=== PATIENT | female | born 2000 | race Caucasian/White ===

== ENCOUNTER 2020-02-10 11:59 | Emergency (ER) | payer OTHER ==
[~2020-02-10 11:59] MED LIST: ALBUTEROL0.5 ML/AMP NEB; AZITHROMYCIN250 MG PO; BACTRIM DS TAB1 EACH PO; CIPRO500 M1 PO; EMVERM100 MG PO; FERROUS SULFAT325 MG PO; FOLIC ACID1 MG PO; IBUPROFEN800 MG PO; KEFLEX250 MG PO; LAMICTAL25 MG PO; MEDROL 4MG DOSEP4 MG PO; MOTRIN600 MG PO; ONDANSETRON ODT4 MG PO; ONDANSETRON ODT4 MG SL; VOLTAREN **OUT75 MG PO; ZANTAC150 MG PO; ZOFRAN4 MG PO
[2020-02-10 13:02] LABS: BILIRUBIN NEGATIVE (NEGATIVE); BLOOD 1+ Ery/uL (NEGATIVE); CLARITY CLEAR (CLEAR); COLOR YELLOW (YELLOW); GLUCOSE (U) NORMAL (NORMAL); LEUKOCYTES NEGATIVE Leu/uL (NEGATIVE); NITRITE NEGATIVE (NEGATIVE); PROTEIN NEGATIVE (NEGATIVE); UROBILINOGEN 0.2 mg/dL (0.2-1.0)
[2020-02-10 13:16] LABS: URINARY WBC RARE
[2020-02-10 13:20] LABS: BASOPHIL 0.9 % (0-2); EOSINOPHIL 6.2 % (0-5); HCT 44.9 % (37.0-47.0); HGB 14.6 g/dl (12.5-16.0); LYMPHOCYTE 19.2 % (15-48); MCH 30.2 pg (25.0-31.0); MCHC 32.5 g/dL (32.0-36.0); MCV 92.8 fL (78.0-100.0); MONOCYTE 9.4 % (0-12); MPV 9.4 fL (6.0-9.5); NEUTROPHIL 63.9 % (41-80); NRBC 0; PLT 208 K/uL (150-400); RBC 4.84 M/uL (4.20-5.40); RDW 12.1 % (11.5-14.0); WBC 9.8 K/uL (4.0-10.5)
[2020-02-10 13:55] LABS: CREATININE 0.59 mg/dL (0.51-0.95); POTASSIUM 4.1 mmol/L (3.5-5.1)
[2020-02-10 13:56] LABS: ALBUMIN 3.7 g/dL (3.4-5.0); BILIRUBIN - TOTAL 0.3 mg/dL (0.2-1.0); GLOBULIN (CALCULATION) 3.3 g/dL
[2020-02-10] MEDS ORDERED: MEDROL 4MG DOSEP4 MG PO (16:43)
[2020-02-10] MEDS ORDERED: PEPCID AC20 MG PO (16:43)
== END 2020-02-10 17:15 | disposition home or self-care (01) ==
LOC: FER 11:59
PROVIDERS: Internal Medicine
DX: J45.909 Unspecified asthma, uncomplicated (principal); R11.2 Nausea with vomiting, unspecified; R19.7 Diarrhea, unspecified; F17.210 Nicotine dependence, cigarettes, uncomplicated; Z20.828 Contact with and (suspected) exposure to other viral communicable diseases
CPT/HCPCS: 36415; 71045; 80053; 81001; 85025; 94664; J2930; U0002

== ENCOUNTER 2020-05-05 11:42 | Emergency (ER) | payer OTHER ==
[~2020-05-05 11:42] MED LIST changes: +PEPCID AC20 MG PO
[2020-05-05 14:00] LABS: BASOPHIL 0.8 % (0-2); EOSINOPHIL 6.7 % (0-5); HCT 43.9 % (37.0-47.0); HGB 14.6 g/dl (12.5-16.0); LYMPHOCYTE 29.3 % (15-48); MCH 30.7 pg (25.0-31.0); MCHC 33.3 g/dL (32.0-36.0); MCV 92.2 fL (78.0-100.0); MONOCYTE 4.5 % (0-12); MPV 8.9 fL (6.0-9.5); NEUTROPHIL 58.1 % (41-80); NRBC 0; PLT 229 K/uL (150-400); RBC 4.76 M/uL (4.20-5.40); RDW 11.9 % (11.5-14.0); WBC 9.8 K/uL (4.0-10.5)
[2020-05-05 14:18] LABS: BUN/CREAT RATIO (CALC) 19.7 RATIO; CREATININE 0.61 mg/dL (0.51-0.95); POTASSIUM 3.8 mmol/L (3.5-5.1)
[2020-05-05] MEDS ORDERED: PREDNISONE 20MG20 MG PO (14:55)
[2020-05-05] MEDS ORDERED: BACTRIM DS TAB1 EACH PO (14:55)
== END 2020-05-05 15:24 | disposition home or self-care (01) ==
LOC: FER 11:42
PROVIDERS: Nurse Practitioner Family
DX: T59.811A Toxic effect of smoke, accidental (unintentional), initial encounter (principal); R06.02 Shortness of breath; L01.00 Impetigo, unspecified; Z20.822 Contact with and (suspected) exposure to COVID-19; Z98.890 Other specified postprocedural states; Y92.009 Unspecified place in unspecified non-institutional (private) residence as the place of occurrence of the external cause
CPT/HCPCS: 36415; 71046; 80048; 85025; 94640; 94664; J1100

== ENCOUNTER 2020-10-09 10:02 | Emergency (ER) | payer OTHER ==
[~2020-10-09 10:02] MED LIST changes: +PREDNISONE 20MG20 MG PO
[2020-10-09 11:13] LABS: BASOPHIL 0.9 % (0-2); EOSINOPHIL 8.3 % (0-5); HCT 44.6 % (37.0-47.0); HGB 14.7 g/dl (12.5-16.0); LYMPHOCYTE 26.5 % (15-48); MCH 30.3 pg (25.0-31.0); MONOCYTE 6.3 % (0-12); MPV 9.2 fL (6.0-9.5); NEUTROPHIL 56.8 % (41-80); NRBC 0; PLT 255 K/uL (150-400); RBC 4.85 M/uL (4.20-5.40); RDW 12.4 % (11.5-14.0); WBC 12.1 K/uL (4.0-10.5)
[2020-10-09 12:15] LABS: BILIRUBIN NEGATIVE (NEGATIVE); BLOOD TRACE-LYSED Ery/uL (NEGATIVE); CLARITY CLEAR (CLEAR); COLOR YELLOW (YELLOW); GLUCOSE (U) NORMAL (NORMAL); LEUKOCYTES NEGATIVE Leu/uL (NEGATIVE); NITRITE NEGATIVE (NEGATIVE); PROTEIN NEGATIVE (NEGATIVE); SPECIFIC GRAVITY 1.025 (1.001-1.030); UROBILINOGEN 0.2 mg/dL (0.2-1.0); pH 6.5 (5.0-9.0)
[2020-10-09 12:36] LABS: BACTERIA 1+; SQUAMOUS EPITHELIAL CELLS 20-50; URINARY WBC RARE
[2020-10-09 12:56] LABS: ALBUMIN 3.5 g/dL (3.4-5.0); BILIRUBIN - TOTAL 0.2 mg/dL (0.2-1.0); BUN/CREAT RATIO (CALC) 15.5 RATIO; CREATININE 0.71 mg/dL (0.51-0.95); GLOBULIN (CALCULATION) 3.5 g/dL; POTASSIUM 4.3 mmol/L (3.5-5.1)
== END 2020-10-09 14:34 | disposition left against medical advice (07) ==
LOC: FER 10:02
PROVIDERS: Internal Medicine; Physician Assistant
DX: R10.9 Unspecified abdominal pain (principal); R11.2 Nausea with vomiting, unspecified; F17.210 Nicotine dependence, cigarettes, uncomplicated; R10.817 Generalized abdominal tenderness
CPT/HCPCS: 36415; 80053; 81001; 84702; 85025; 96372; J2550; J7030

== ENCOUNTER 2020-11-13 16:11 | Emergency (ER) | payer OTHER ==
[2020-11-13 17:39] LABS: BILIRUBIN NEGATIVE (NEGATIVE); BLOOD 2+ Ery/uL (NEGATIVE); CLARITY CLEAR (CLEAR); COLOR YELLOW (YELLOW); GLUCOSE (U) NORMAL (NORMAL); LEUKOCYTES NEGATIVE Leu/uL (NEGATIVE); NITRITE NEGATIVE (NEGATIVE); PROTEIN NEGATIVE (NEGATIVE); UROBILINOGEN 0.2 mg/dL (0.2-1.0)
[2020-11-13 17:42] LABS: AMPHETAMINES NEGATIVE (NEGATIVE); BARBITURATES NEGATIVE (NEGATIVE); ECSTASY (MDMA) NEGATIVE (NEGATIVE); MARIJUANA (THC) POSITIVE (NEGATIVE); METHADONE NEGATIVE (NEGATIVE); OPIATES NEGATIVE (NEGATIVE); OXYCODONE NEGATIVE (NEGATIVE)
[2020-11-13 17:54] LABS: BACTERIA TRACE; MUCOUS MODERATE; SPERM PRESENT
[2020-11-13 18:06] LABS: BASOPHIL 0.6 % (0-2); EOSINOPHIL 4.4 % (0-5); HCT 43.2 % (37.0-47.0); HGB 14.1 g/dl (12.5-16.0); LYMPHOCYTE 20.7 % (15-48); MCH 30.7 pg (25.0-31.0); MCHC 32.6 g/dL (32.0-36.0); MCV 93.9 fL (78.0-100.0); MONOCYTE 4.6 % (0-12); MPV 9.5 fL (6.0-9.5); NEUTROPHIL 69.2 % (41-80); NRBC 0; PLT 242 K/uL (150-400); RDW 12.6 % (11.5-14.0); WBC 15.1 K/uL (4.0-10.5)
[2020-11-13 18:44] LABS: ALBUMIN 3.8 g/dL (3.4-5.0); BILIRUBIN - TOTAL 0.2 mg/dL (0.2-1.0); BUN/CREAT RATIO (CALC) 12.7 RATIO; CREATININE 0.71 mg/dL (0.51-0.95); GLOBULIN (CALCULATION) 3.6 g/dL; POTASSIUM 3.7 mmol/L (3.5-5.1); TOTAL PROTEIN 7.4 g/dL (6.4-8.2)
[2020-11-13 19:00] LABS: LACTIC ACID 1.1 mmol/L (0.4-1.9)
[2020-11-13] MEDS ORDERED: ZOFRAN4 M1 PO (19:43)
[2020-11-15 22:09] LABS: CHLAMYDIA TRACHOMATIS, NAA Negative (Negative); NEISSERIA GONORRHOEAE, NAA Negative (Negative)
== END 2020-11-13 20:08 | disposition home or self-care (01) ==
LOC: FER 16:11
PROVIDERS: Nurse Practitioner Family
DX: R10.84 Generalized abdominal pain (principal); R11.2 Nausea with vomiting, unspecified; R10.817 Generalized abdominal tenderness; F12.10 Cannabis abuse, uncomplicated; K21.9 Gastro-esophageal reflux disease without esophagitis; J45.909 Unspecified asthma, uncomplicated; F17.210 Nicotine dependence, cigarettes, uncomplicated; R00.0 Tachycardia, unspecified
CPT/HCPCS: 36415; 80053; 80305; 81001; 83605; 85025; 87040; 87491; 87591; J1885; J2405; J7030; Q9967

== ENCOUNTER 2020-12-31 09:34 | Emergency (ER) | payer OTHER ==
[~2020-12-31 09:34] MED LIST changes: +ZOFRAN4 M1 PO
[2020-12-31 11:08] LABS: EOSINOPHIL 11.3 % (0-5); HCT 45.6 % (37.0-47.0); LYMPHOCYTE 19.4 % (15-48); MCH 30.3 pg (25.0-31.0); MCHC 32.9 g/dL (32.0-36.0); MCV 92.1 fL (78.0-100.0); MONOCYTE 6.6 % (0-12); MPV 8.9 fL (6.0-9.5); NEUTROPHIL 61.3 % (41-80); NRBC 0; PLT 245 K/uL (150-400); RBC 4.95 M/uL (4.20-5.40); RDW 11.9 % (11.5-14.0)
[2020-12-31 11:27] LABS: ALBUMIN 3.8 g/dL (3.4-5.0); BILIRUBIN - TOTAL 0.4 mg/dL (0.2-1.0); CREATININE 0.8 mg/dL (0.51-0.95); GLOBULIN (CALCULATION) 3.4 g/dL; POTASSIUM 3.6 mmol/L (3.5-5.1); TOTAL PROTEIN 7.2 g/dL (6.4-8.2)
[2020-12-31 12:11] LABS: CORONAVIRUS 2019 SARS-COV-2 NEGATIVE (NEGATIVE); INFLUENZA A NAA NEGATIVE (NEGATIVE)
[2020-12-31] MEDS ORDERED: TESSALON PERLE100 MG PO (12:35)
[2020-12-31] MEDS ORDERED: MUCINEX1200 MG PO (12:35)
[2020-12-31] MEDS ORDERED: ATROVENT HFA12.9 GM INH (12:35)
[2020-12-31] MEDS ORDERED: PREDNISONE50 M1 PO (12:35)
[2020-12-31] MEDS ORDERED: VIBRAMYCIN100 MG PO (12:35)
== END 2020-12-31 13:14 | disposition home or self-care (01) ==
LOC: FER 09:34
PROVIDERS: Internal Medicine
DX: J22 Unspecified acute lower respiratory infection (principal); Z87.891 Personal history of nicotine dependence; Z20.822 Contact with and (suspected) exposure to COVID-19
CPT/HCPCS: 36415; 71045; 80053; 83690; 84145; 84702; 85025; J2930; J7030; U0002

== ENCOUNTER 2021-01-28 17:47 | Emergency (ER) | payer OTHER ==
[~2021-01-28] VITALS: Ht 167.6 cm; Wt 68.0 kg
[~2021-01-28 17:47] MED LIST changes: +ATROVENT HFA12.9 GM INH; +MUCINEX1200 MG PO; +PREDNISONE50 M1 PO; +TESSALON PERLE100 MG PO; +VIBRAMYCIN100 MG PO
[2021-01-28 19:31] LABS: CORONAVIRUS 2019 SARS-COV-2 NEGATIVE (NEGATIVE); INFLUENZA A NAA NEGATIVE (NEGATIVE)
[2021-01-28 19:51] LABS: BASOPHIL 0.8 % (0-2); HCT 44.4 % (37.0-47.0); HGB 14.8 g/dl (12.5-16.0); LYMPHOCYTE 21.9 % (15-48); MCH 30.9 pg (25.0-31.0); MCHC 33.3 g/dL (32.0-36.0); MCV 92.7 fL (78.0-100.0); MONOCYTE 5.5 % (0-12); MPV 10.2 fL (6.0-9.5); NEUTROPHIL 62.3 % (41-80); NRBC 0; PLT 273 K/uL (150-400); RBC 4.79 M/uL (4.20-5.40); RDW 11.9 % (11.5-14.0); WBC 16.9 K/uL (4.0-10.5)
[2021-01-28 20:16] LABS: ALBUMIN 3.9 g/dL (3.4-5.0); BILIRUBIN - TOTAL 0.2 mg/dL (0.2-1.0); BUN/CREAT RATIO (CALC) 10.4 RATIO; C-REACTIVE PROTEIN 3.9 mg/dL (<=0.90); CREATININE 0.67 mg/dL (0.51-0.95); GLOBULIN (CALCULATION) 3.4 g/dL; POTASSIUM 3.8 mmol/L (3.5-5.1); TOTAL PROTEIN 7.3 g/dL (6.4-8.2)
[2021-01-28 20:17] LABS: BILIRUBIN NEGATIVE (NEGATIVE); BLOOD TRACE-INTACT Ery/uL (NEGATIVE); CLARITY HAZY (CLEAR); COLOR YELLOW (YELLOW); GLUCOSE (U) NORMAL (NORMAL); LEUKOCYTES NEGATIVE Leu/uL (NEGATIVE); NITRITE NEGATIVE (NEGATIVE); PROTEIN NEGATIVE (NEGATIVE); UROBILINOGEN 0.2 mg/dL (0.2-1.0)
[2021-01-28 20:25] LABS: BACTERIA 1+; URINARY RBC RARE
[2021-01-28 20:26] LABS: AMORPHOUS PHOSPHATE CRYSTALS MODERATE
[2021-01-28] MEDS ORDERED: PROAIR HFA8.5 GM INH (22:20)
[2021-01-28] MEDS ORDERED: PREDNISONE 20MG20 MG PO (22:20)
[2021-01-28] MEDS ORDERED: ONDANSETRON ODT4 MG PO (22:20)
[2021-01-28] MEDS ORDERED: VIBRAMYCIN100 MG PO (22:20)
[2021-01-28] MEDS ORDERED: VENTOLIN (2.5 MG/3 M NEB (22:23)
== END 2021-01-28 22:30 | disposition home or self-care (01) ==
LOC: FER 17:47
PROVIDERS: Emergency Medicine
DX: J45.909 Unspecified asthma, uncomplicated (principal); N39.0 Urinary tract infection, site not specified; F17.210 Nicotine dependence, cigarettes, uncomplicated; Z20.822 Contact with and (suspected) exposure to COVID-19
CPT/HCPCS: 36415; 71046; 80053; 81001; 82728; 83690; 84145; 85025; 86140; 94640; J2405; J2930; U0002

== ENCOUNTER 2021-02-23 06:36 | Inpatient (IN) | payer OTHER ==
[~2021-02-23] VITALS: Ht 157.5 cm; Wt 73.1 kg
[~2021-02-23 06:36] MED LIST changes: +PROAIR HFA8.5 GM INH; +VENTOLIN (2.5 MG/3 M NEB
[2021-02-23 08:34] LABS: BASOPHIL 0.6 % (0-2); EOSINOPHIL 1.5 % (0-5); HCT 48.7 % (37.0-47.0); HGB 15.9 g/dl (12.5-16.0); LYMPHOCYTE 9.9 % (15-48); MCH 30.3 pg (25.0-31.0); MCHC 32.6 g/dL (32.0-36.0); MCV 92.8 fL (78.0-100.0); MONOCYTE 7.3 % (0-12); MPV 8.8 fL (6.0-9.5); NRBC 0; PLT 215 K/uL (150-400); RBC 5.25 M/uL (4.20-5.40); RDW 12.4 % (11.5-14.0); WBC 15.6 K/uL (4.0-10.5)
[2021-02-23 08:39] LABS: BILIRUBIN NEGATIVE (NEGATIVE); BLOOD 2+ Ery/uL (NEGATIVE); CLARITY CLEAR (CLEAR); COLOR YELLOW (YELLOW); GLUCOSE (U) NORMAL (NORMAL); LEUKOCYTES NEGATIVE Leu/uL (NEGATIVE); NITRITE NEGATIVE (NEGATIVE); PROTEIN NEGATIVE (NEGATIVE); SPECIFIC GRAVITY >=1.030 (1.001-1.030); UROBILINOGEN 0.2 mg/dL (0.2-1.0)
[2021-02-23 09:07] LABS: ALBUMIN 4.1 g/dL (3.4-5.0); BILIRUBIN - TOTAL 0.3 mg/dL (0.2-1.0); BUN/CREAT RATIO (CALC) 9.3 RATIO; CREATININE 0.75 mg/dL (0.51-0.95); GLOBULIN (CALCULATION) 4.3 g/dL; POTASSIUM 3.6 mmol/L (3.5-5.1); TOTAL PROTEIN 8.4 g/dL (6.4-8.2)
[2021-02-23 09:11] LABS: LACTIC ACID 1.7 mmol/L (0.4-1.9); MUCOUS TRACE; URINARY WBC RARE
[2021-02-23 09:40] LABS: CORONAVIRUS 2019 SARS-COV-2 NEGATIVE (NEGATIVE); INFLUENZA A NAA NEGATIVE (NEGATIVE)
[2021-02-23] MEDS ORDERED: AUGMENTIN 875-1 EACH PO (11:09)
[2021-02-23] MEDS ORDERED: LAMICTAL100 MG PO (17:25)
[2021-02-24 07:10] LABS: BASOPHIL 0.4 % (0-2); EOSINOPHIL 0 % (0-5); HCT 44.4 % (37.0-47.0); HGB 14.8 g/dl (12.5-16.0); LYMPHOCYTE 7.8 % (15-48); MCH 30.6 pg (25.0-31.0); MCHC 33.3 g/dL (32.0-36.0); MCV 91.9 fL (78.0-100.0); MONOCYTE 1.6 % (0-12); MPV 9.4 fL (6.0-9.5); NEUTROPHIL 89.1 % (41-80); NRBC 0; PLT 204 K/uL (150-400); RBC 4.83 M/uL (4.20-5.40); RDW 11.9 % (11.5-14.0); RETICULOCYTE COUNT 1.7 % (1.0-2.0); WBC 7.4 K/uL (4.0-10.5)
[2021-02-24 07:32] LABS: IRON % SATURATION 14.2 %SAT (20-50)
[2021-02-24 08:02] LABS: BUN/CREAT RATIO (CALC) 18.6 RATIO; CREATININE 0.7 mg/dL (0.51-0.95); PHOSPHORUS 5.3 mg/dL (2.6-4.7); POTASSIUM 4.5 mmol/L (3.5-5.1)
[2021-02-25] MEDS ORDERED: MEDROL 4MG DOSEP4 MG PO (15:55)
[2021-02-25] MEDS ORDERED: MUCINEX 600MG600 MG PO (15:55)
[2021-02-25] MEDS ORDERED: AUGMENTIN 875-1 EACH PO (15:55)
[2021-02-25] MEDS ORDERED: DUONEB 2.5-0.5M1 AMP NEB ×2 (15:55→16:51)
== END 2021-02-25 16:45 | disposition home or self-care (01) | DRG 871 ==
LOC: FER 06:36 → FMS 11:03
PROVIDERS: Emergency Medicine; ADMIT Internal Medicine
DX: A41.9 Sepsis, unspecified organism (principal); J96.01 Acute respiratory failure with hypoxia; J15.9 Unspecified bacterial pneumonia; J45.901 Unspecified asthma with (acute) exacerbation; R65.20 Severe sepsis without septic shock; D50.9 Iron deficiency anemia, unspecified; F17.210 Nicotine dependence, cigarettes, uncomplicated; E28.2 Polycystic ovarian syndrome; Z20.822 Contact with and (suspected) exposure to COVID-19; Z99.81 Dependence on supplemental oxygen; Z87.01 Personal history of pneumonia (recurrent); Z79.899 Other long term (current) drug therapy
CPT/HCPCS: 36415; 36600; 71045; 71275; 80048; 80053; 81001; 82607; 82803; 83540; 83550; 83605; 83735; 83880; 84100; 84145; 85025; 85379; 87040; 87070; 87205; 94010; 94640; 94667; 94668; 94760; J0456; J0696; J1650; J2543; J2916; J2930; J3475; J7050; Q9967; U0002

== ENCOUNTER 2021-08-17 00:35 | Emergency (ER) | payer OTHER ==
[~2021-08-17 00:35] MED LIST changes: +AUGMENTIN 875-1 EACH PO; +DUONEB 2.5-0.5M1 AMP NEB; +LAMICTAL100 MG PO; +MUCINEX 600MG600 MG PO
[2021-08-17 03:09] LABS: ALBUMIN 4.2 g/dL (3.4-5.0); BILIRUBIN - TOTAL 0.3 mg/dL (0.2-1.0); BUN/CREAT RATIO (CALC) 14.1 RATIO; CREATININE 0.78 mg/dL (0.51-0.95); GLOBULIN (CALCULATION) 3.1 g/dL; POTASSIUM 4.1 mmol/L (3.5-5.1); TOTAL PROTEIN 7.3 g/dL (6.4-8.2)
[2021-08-17 03:50] LABS: BASOPHIL 0.8 % (0-2); EOSINOPHIL 6.5 % (0-5); HCT 46.3 % (37.0-47.0); HGB 15.4 g/dl (12.5-16.0); LYMPHOCYTE 32.8 % (15-48); MCH 30.6 pg (25.0-31.0); MCHC 33.3 g/dL (32.0-36.0); MONOCYTE 5.8 % (0-12); MPV 9.4 fL (6.0-9.5); NEUTROPHIL 53.3 % (41-80); NRBC 0; PLT 249 K/uL (150-400); RBC 5.03 M/uL (4.20-5.40); RDW 12.2 % (11.5-14.0); WBC 11.6 K/uL (4.0-10.5)
[2021-08-17] MEDS ORDERED: NORCO 5-325 TA1 EACH PO (04:27)
[2021-08-17] MEDS ORDERED: NAPROXEN500 MG PO (04:37)
== END 2021-08-17 04:45 | disposition home or self-care (01) ==
LOC: FER 00:35
PROVIDERS: Internal Medicine
DX: S06.0X0A Concussion without loss of consciousness, initial encounter (principal); M54.2 Cervicalgia; M54.50 Low back pain, unspecified; F17.210 Nicotine dependence, cigarettes, uncomplicated; V49.50XA Passenger injured in collision with unspecified motor vehicles in traffic accident, initial encounter
CPT/HCPCS: 36415; 70450; 72125; 72128; 72131; 80053; 84702; 85025

== ENCOUNTER 2021-08-27 16:59 | Emergency (ER) | payer OTHER ==
[~2021-08-27 16:59] MED LIST changes: +NAPROXEN500 MG PO; +NORCO 5-325 TA1 EACH PO
[2021-08-27 20:58] LABS: BILIRUBIN 1+ mg/dL (NEGATIVE); BLOOD TRACE-INTACT Ery/uL (NEGATIVE); CLARITY CLEAR (CLEAR); COLOR YELLOW (YELLOW); GLUCOSE (U) NORMAL (NORMAL); LEUKOCYTES NEGATIVE Leu/uL (NEGATIVE); NITRITE NEGATIVE (NEGATIVE); PROTEIN 1+ mg/dL (NEGATIVE); SPECIFIC GRAVITY >=1.030 (1.001-1.030); UROBILINOGEN 0.2 mg/dL (0.2-1.0)
[2021-08-27 21:04] LABS: BACTERIA 4+
[2021-08-27 21:05] LABS: AMORPHOUS URATES CRYSTALS MODERATE
[2021-08-27] MEDS ORDERED: BACTRIM DS TAB1 EACH PO (21:20)
== END 2021-08-27 21:24 | disposition home or self-care (01) ==
LOC: FER 16:59
PROVIDERS: Nurse Practitioner Family
DX: S00.11XA Contusion of right eyelid and periocular area, initial encounter (principal); S80.01XA Contusion of right knee, initial encounter; S09.90XA Unspecified injury of head, initial encounter; N39.0 Urinary tract infection, site not specified; M54.2 Cervicalgia; M54.50 Low back pain, unspecified; Y04.0XXA Assault by unarmed brawl or fight, initial encounter; Y04.8XXA Assault by other bodily force, initial encounter; Y92.009 Unspecified place in unspecified non-institutional (private) residence as the place of occurrence of the external cause
CPT/HCPCS: 70450; 70486; 72125; 72131; 81001; 87088